=== PATIENT | female | born 1955 | race Caucasian/White ===

== ENCOUNTER 2019-01-22 18:26 | Inpatient (IN) ==
[2019-01-22] MEDS ORDERED: ZOFRAN IV PRN (20:15)
[2019-01-22] MEDS ORDERED: CARDIZEM 100 MG/NS 100 MG/100 ML IVPB IV SCH (20:45)
--- NOTE | 2019-01-22 21:16 | EKG Report ---
Test Performed on : 01/22/2019 8:45:59 PM Test Reason : afib rvr Blood Pressure : / mmHG Vent. Rate : 064 BPM Atrial Rate : 064 BPM P-R Int : 136 ms QRS Dur : 084 ms QT Int : 406 ms P-R-T Axes : 053 006 062 degrees QTc Int : 418 ms Normal sinus rhythm. Possible Left atrial enlargement Nonspecific ST abnormality Abnormal ECG When compared with ECG of 21-JUN-2011 12:28, No significant change was found Confirmed by Ayden MARQUES, Harris ([id number]) on 01/23/2019 8:40:52 AM
--- NOTE | 2019-01-22 21:18 | HISTORY AND PHYSICAL ---
PRIMARY CARE PROVIDER: Yung Medel MD. CHIEF COMPLAINT: Upper respiratory infection. HISTORY OF PRESENT ILLNESS: This is a pleasant, 63-year-old female who comes to us from [facility]. She had originally gone to Urgent Care because of cough and upper respiratory complaints. She was diagnosed with a sinus infection, upper respiratory infection, but she was found to be tachycardic and was told to go be evaluated at the Emergency Room. The Emergency Room noted that she was in A-fib with a rapid ventricular rate. She was given multiple pushes of Cardizem and was maxed out on a Cardizem drip. She was transferred for further evaluation. She is currently in sinus rhythm with a rate of 63 on 5 mg of Cardizem. She will be monitored in CICU with an echocardiogram tomorrow morning. PAST MEDICAL HISTORY: Hyperlipidemia. PREVIOUS SURGICAL HISTORY: Two C-sections. SOCIAL HISTORY: She smokes half a pack of cigarettes per day. No alcohol. No illicit drugs. FAMILY HISTORY: Parents both had CVAs. Mother had open heart surgery after having coronary artery disease. A brother had a heart attack. ALLERGIES: No known drug allergies. HOME MEDICATIONS: Lipitor; she is unsure what dose she takes. Order was placed with nursing to reconcile this with her pharmacy. REVIEW OF SYSTEMS: A 14-point review of systems was conducted with the patient. She is positive for a productive cough, postnasal drip, head fullness or sinus stuffiness, it felt as if her heart was racing and she was having shortness of breath with the episode. All other systems are reviewed and found to be negative. PHYSICAL EXAMINATION: VITAL SIGNS: Temperature 98.6 degrees, pulse 67, respirations 18, blood pressure 137/67, oxygen saturation 100% on room air. GENERAL: A pleasant, 63-year-old female lying on the [facility] bed. She is alert and oriented x 3, in no acute distress. Answers all questions appropriately. HEENT: The head is atraumatic and normocephalic. The pupils are equal, round, and reactive to light. The extraocular eye movement is intact. The sclerae are nonicteric. The conjunctivae are pink. The oral mucosa is moist. Postnasal drip noted. No pharyngeal erythema. No tonsillar exudates. NECK: Supple. No JVD. No carotid bruit. The trachea is midline. No cervical lymphadenopathy. CARDIAC: S1, S2 appreciated. No murmurs, gallops, rubs. LUNGS: Clear to auscultation bilaterally. No rhonchi, wheezes, or rales. Symmetric rise and fall with respirations. ABDOMEN: Protuberant. Soft, nondistended, nontender. Bowel sounds present in all 4 quadrants. Normoactive. No pulsatile masses. No organomegaly. EXTREMITIES: No clubbing, cyanosis or edema. 2+ pedal pulses bilaterally. GENITOURINARY: No bladder distention; patient voids. Otherwise deferred. NEUROLOGICAL: Alert and oriented x 3. Cranial nerves II-XII grossly intact. DIAGNOSTIC DATA: Chest x-ray is pending. Laboratory data: WBC 14, hemoglobin 14.6, hematocrit 44, platelet count 236. Sodium 135, potassium 4.3, chloride 95, carbon dioxide 24, BUN 10, creatinine 0.8, glucose 98. Urinalysis unremarkable. CK and troponins within normal limits. ASSESSMENT AND PLAN: 1. Atrial fibrillation with rapid ventricular rate. We will continue Cardizem drip. Echocardiogram tomorrow morning. We will change patient over to oral medications. 2. Sinus infection. We will treat with Levaquin. She is also having cough. We will give Tussionex p.r.n.. 3. Hyperlipidemia. Check a lipid profile. Nursing to reconcile her home Lipitor dosing with the pharmacy. This can be restarted when appropriate. Further recommendations depending on clinical course. Dictated by JIMMY Patterson for Clau Shaffer MD cc: JIMMY Patterson MD Examined pt independently at bedside. CHADS vasc 2 score is <2 and will start on ASA for now. Echo ordered and extensive valvular disease needs to be ruled out along with depressed LV function. Pt did admit to taking 2 decogestant medications prior onset of symptoms today. [facility]
[2019-01-22] MEDS: TYLENOL PO PRN (21:24)
[2019-01-22] MEDS: TUSSIONEX LIQUID PO PRN (21:24)
[2019-01-23] MEDS: TYLENOL PO PRN (03:31)
[2019-01-23 06:17] LABS: BASO# 0.02 X1000 (0.0-0.2); BASO% 0.2 % (0.0-0.8); EOS# 0.16 X1000 (0.0-0.7); HEMATOCRIT 37.6 % (37.0-47.0); HEMOGLOBIN 12.3 g/dL (12.0-16.0); IMM GRAN# 0.02 X1000 (0.0-0.04); IMM GRAN% 0.2 % (0.0-0.5); LYMPH# 0.75 X1000 (1.2-3.4); LYMPH% 9.3 % (20.5-51.1); MCH 28.6 PG (27-31); MCHC 32.7 g/dL (33-37); MCV 87.4 FL (81-99); MONO# 0.76 X1000 (0.11-0.59); MONO% 9.4 % (1.7-9.3); MPV 11.2 FL (7.4-10.4); NEUT# 6.34 X1000 (1.4-6.5); NEUT% 78.9 % (42.2-75.2); PLT 203 X1000 (130-400); WBC 8.05 X1000 (4.8-10.8)
[2019-01-23 06:33] LABS: AGAP 15; BUN 13 mg/dL (8-22); CALCIUM 8.7 mg/dL (8.8-10.2); CHLORIDE 99 mmol/L (98-107); CHOLESTEROL 130 mg/dL (0-200); COSMO 272; CREATININE 0.8 mg/dL (0.5-0.9); ESTIMATED GFR > 60; GLUCOSE 99 mg/dL (70-104); HDL 51 mg/dL (45-65); LDL 47 mg/dL; MAGNESIUM 1.9 mg/dL (1.5-2.7); POTASSIUM 3.6 mmol/L (3.5-5.1); SODIUM 136 mmol/L (136-145); TCO2 22 mmol/L (25-35); TRIGLYCERIDES 160 mg/dL (35-135); VLDL 32 mg/dL
--- NOTE | 2019-01-23 08:38 | EKG Report ---
Test Performed on : 01/23/2019 08:26:02 AM Test Reason : A FIB Blood Pressure : / mmHG Vent. Rate : 065 BPM Atrial Rate : 065 BPM P-R Int : 140 ms QRS Dur : 082 ms QT Int : 416 ms P-R-T Axes : 054 -12 037 degrees QTc Int : 432 ms Normal sinus rhythm. Possible Left atrial enlargement Left ventricular hypertrophy Nonspecific ST abnormality Abnormal ECG When compared with ECG of 22-JAN-2019 20:45, (Unconfirmed) No significant change was found Confirmed by Ayden MARQUES, Harris ([id number]) on 01/23/2019 8:45:38 AM
[2019-01-23] MEDS: LEVAQUIN PO SCH (09:41)
--- NOTE | 2019-01-23 11:25 | Diag Imaging Result Doc PS360 ---
EXAM: CHEST-2 VIEWS 01/23/2019 HISTORY: URI TECHNIQUE: PA and lateral chest COMMENT: There is no evidence of acute cardiac or pulmonary disease. Compared to 08/05/2017 there has been no significant change. IMPRESSION: No evidence of acute disease. Electronically signed by Camron Appiah 01/23/2019 11:22 AM
--- NOTE | 2019-01-23 12:33 | PROGRESS NOTE ---
DATE: 01/23/2019 SUBJECTIVE: This patient has been transferred from [facility] due to atrial fibrillation. Apparently, she was given some Cardizem, and then transferred to our facility. As per the admitting physician's note, her heart rate was in sinus when he saw this patient at 63. She was transferred to [facility]. We asked for an echocardiogram and cardiology evaluation. She does not have any history of atrial fibrillation before. She is a smoker. She has dyslipidemia and a sinus infection. OBJECTIVE: Vital Signs: Temperature 98.9 degrees, pulse 81, respiratory rate 20, blood pressure 109/60, and oxygen saturation 95% on room air. HEENT: Head normocephalic. No trauma. PERRLA. Neck: Supple. No JVD. No masses. Central trachea. Chest: Decreased breath sounds bilaterally with some prolongation of the expiratory phase and scattered wheezing. Abdomen: Soft. Protuberant. Nontender. Nondistended. No hepatosplenomegaly. Extremities: No edema. No clubbing. No cyanosis. Cardiovascular: RRR. Neurological: The patient is alert. She is oriented x3. No focal deficits. LABORATORY: WBC 8, hemoglobin 12.3, hematocrit 37.6, and platelets 203,000. Sodium 136, potassium 3.6, chloride 99, bicarbonate 22, BUN 13, creatinine 0.8 glucose 99, calcium 8.7, magnesium 1.9, and TSH 3.2. ASSESSMENT AND PLAN: 1. Atrial fibrillation with RVR, resolved. She is still on diltiazem drip. Cardiology Department has been consulted pending echocardiogram resolved. I have requested a new EKG. She is complaining of mild shortness of breath and cough. She is wheezing, but she does not have any history of COPD. She does have a sinus infection. 2. Sinusitis. She has been started on Levaquin and cough medication, I will add Xopenex because this patient has been wheezing. 3. Hyperlipidemia. Continue with her Lipitor, which is apparently the only medication that she has been on. She has been taking at home. 4. Tobacco abuse. This patient has been highly advised against tobacco use. I will continue with daily cessation education. 5. This patient is in normal sinus at this moment. It looks like her CHADS2 Vasc score is low. I will let Cardiology Department to decide if this patient needs anticoagulation or not. cc: Adalberto Ogden MD
[2019-01-23] MEDS: CARDIZEM PO SCH ×2 (14:14→21:37)
[2019-01-23] MEDS: ASPIRIN PO SCH (14:14)
[2019-01-23] MEDS: XOPENEX NEB INH SCH ×3 (16:41→21:23)
--- NOTE | 2019-01-23 17:59 | ECHO REPORT ---
ORDER DATE: 01/23/2019 M-MODE MEASUREMENTS: Left ventricle end diastole: 4.9. Left ventricle end systole: 2.7. Posterior wall: 1.0. Interventricular septum: 1.0. Left atrium: 3.1. Aortic diameter: 2.6. SUMMARY OF 2-DIMENSIONAL IMAGIN. Left ventricular function is normal. Ejection fraction is 70% to 75%. No wall motion abnormality noted. 2. The aortic valve is normal. Color flow mapping unremarkable. There is an abnormal gradient across the outflow tract of the left ventricle measuring up to 44 mmHg. Mean gradient is 21 mmHg. On clip # 58, systolic frame, I believe there is evidence of a subvalvular aortic membrane. 3. The mitral valve also looks grossly normal. Color flow mapping unremarkable. 4. Pulsed wave Doppler of mitral inflow of shows "normal" E/A ratio. 5. Tissue Doppler of septal and lateral mitral annulus averages 12 cm. 6. Pulmonary venous flow is normal. There is no diastolic dysfunction. 7. The pulmonic valve shows a mild degree of regurgitation. 8. The tricuspid valve shows a mild to moderate degree of regurgitation. The pulmonary pressure is estimated at 56 mmHg. 9. There is no pericardial effusion, no mass, and no thrombus. 10.The atria appear to be within normal range. SUMMARY: This study shows: 1. Normal to hyperdynamic left ventricular systolic function. 2. Normal aortic,pulmonic, mitral tricuspid valves. 3. The increased gradient accross outflow tract of LV may relate to subvalvular aortic membrane (see clip #58, systolic frame). 6. No diastolic dysfunction is noted. 7. There is moderate pulmonary hypertension. Consider pursuing DANIA to confirm presence of subaortic membrane. cc: MD Tomas Clemente CRNP MTDD
[2019-01-23] MEDS: LIPITOR PO SCH (21:37)
--- NOTE | 2019-01-23 22:19 | CONSULTATION ---
DATE OF CONSULTATION: 01/23/2019 IMPRESSION: 1. Transient atrial fibrillation, rapid ventricular rate in setting of acute noncardiac illness (chronic obstructive pulmonary disease exacerbation). 2. Acute respiratory illness with shortness of breath and cough. Consider acute bronchitis. 3. Chronic cigarette use. 4. Obesity. RECOMMENDATIONS: 1. Telemetry observation. 2. Continue Cardizem orally. 3. Echocardiography. 4. Check thyroid function studies. 5. Continue to monitor for recurrent atrial fibrillation with inpatient telemetry and ultimately outpatient event recorder. 6. Aspirin p.o. daily for now. Consider anticoagulation if further atrial fibrillation. 7. Smoking cessation strongly advised. HISTORY: This 63-year-old white female with no prior cardiac history was transferred from [facility] in [place] for further management of acute respiratory illness as well as episode of atrial fibrillation with rapid ventricular rate. She describes a several day history of progressive cough and shortness of breath. She sought evaluation at urgent care in [place]. An irregular rate was noted in her cardiac rhythm and ECG was obtained which showed transient atrial fibrillation. She was referred to the emergency room [place] and subsequently transferred here for further care. She relates occasional brief palpitations through the years but has no awareness of any sustained tachy palpitations or the diagnosis of atrial fibrillation. There is no history of angina. Unfortunately she smokes 1/2 to 1 pack cigarettes per day. She does not use alcohol. PAST MEDICAL HISTORY: 1. Hyperlipidemia. 2. Past surgical history includes 2 previous sections. 3. She has no known drug allergies. 4. Medications prior to admission as listed. SOCIAL HISTORY: She is . She smokes 1/2 to 1 pack cigarettes per day. She does not use alcohol. She does not use recreational drugs. FAMILY HISTORY: Negative for premature coronary disease. REVIEW OF SYSTEMS: Pulmonary: Noteworthy for dyspnea and cough as well as some wheezing. Gastrointestinal: Negative. Constitutional: Negative for fever. Remainder of review of systems negative/noncontributory with 14 total systems reviewed. PHYSICAL EXAMINATION: General: This is a obese, older middle-aged white female in no distress. Blood pressure 130/55, heart rate 66 and regular. HEENT: Extraocular movements intact. Mucous membranes moist. Neck: Supple without jugular venous distention. No carotid bruits. Chest: Auscultation of the chest reveals scattered expiratory wheezes. Cardiac: Reveals a regular rate and rhythm without appreciable murmur or gallop. Abdomen: Soft. Bowel sounds are normal. Extremities: Without edema. Neurologic: Reveals her to be alert and fully oriented. Speech is fluent. She moves all 4 extremities equally well. Skin: Warm, dry. Psychiatric: Reveals her mood to be appropriate. DATA: Twelve lead EKG obtained yesterday in the emergency room in [facility] demonstrates sinus rhythm with a transient irregular supraventricular tachyarrhythmia probably atrial fibrillation but cannot entirely exclude multifocal atrial tachycardia. ECG after transfer here demonstrates normal sinus rhythm, left atrial abnormality and nonspecific ST abnormality. LABORATORY DATA: Includes sodium 136, potassium 3.6, chloride 99, carbon dioxide 22, BUN 13, creatinine 0.8, glucose 99, magnesium 1.9. White blood cell count 8.05, hematocrit 37.6, platelet count 203,000, hemoglobin 12.3. Chest x-ray with no acute infiltrate. cc: Judah Stahl MD
[2019-01-24] MEDS: CARDIZEM PO SCH (02:28)
[2019-01-24 07:03] LABS: AGAP 13; BUN 11 mg/dL (8-22); CALCIUM 9.4 mg/dL (8.8-10.2); CHLORIDE 101 mmol/L (98-107); COSMO 275; CREATININE 0.7 mg/dL (0.5-0.9); ESTIMATED GFR > 60; GLUCOSE 106 mg/dL (70-104); POTASSIUM 3.6 mmol/L (3.5-5.1); SODIUM 138 mmol/L (136-145); TCO2 24 mmol/L (25-35)
[2019-01-24] MEDS ORDERED: CARDIZEM IV ONE (07:13)
[2019-01-24] MEDS ORDERED: CARDIZEM 100 MG/NS 100 MG/100 ML IVPB IV SCH (07:30)
--- NOTE | 2019-01-24 07:43 | EKG Report ---
Test Performed on : 01/24/2019 06:33:19 AM Test Reason : tachycardia Blood Pressure : / mmHG Vent. Rate : 126 BPM Atrial Rate : 178 BPM P-R Int : 000 ms QRS Dur : 082 ms QT Int : 290 ms P-R-T Axes : 000 015 150 degrees QTc Int : 420 ms Atrial fibrillation. with rapid ventricular response. Marked ST abnormality, possible inferior subendocardial injury Abnormal ECG When compared with ECG of 23-JAN-2019 08:26, Atrial fibrillation. has replaced Sinus rhythm. Vent. rate has increased BY [address] now depressed in Inferior leads T wave inversion now evident in Lateral leads Confirmed by Ayden MARQUES, Harris ([id number]) on 01/24/2019 8:40:58 AM
[2019-01-24] MEDS: LOVENOX SUBQ SCH ×2 (07:48→20:12)
[2019-01-24] MEDS: ASPIRIN PO SCH ×2 (07:49→08:01)
[2019-01-24] MEDS: LEVAQUIN PO SCH ×2 (07:49→08:01)
[2019-01-24] MEDS: XOPENEX NEB INH SCH ×3 (08:30→21:19)
[2019-01-24] MEDS: MULTAQ PO SCH ×2 (09:46→20:12)
--- NOTE | 2019-01-24 11:38 | EKG Report ---
Test Performed on : 01/24/2019 11:13:01 AM Test Reason : sr vs afib Blood Pressure : / mmHG Vent. Rate : 065 BPM Atrial Rate : 065 BPM P-R Int : 140 ms QRS Dur : 088 ms QT Int : 394 ms P-R-T Axes : 057 004 050 degrees QTc Int : 409 ms Normal sinus rhythm. Nonspecific ST abnormality Abnormal ECG When compared with ECG of 24-JAN-2019 06:33, Sinus rhythm. has replaced Atrial fibrillation. Vent. rate has decreased BY 61 BPM T wave inversion no longer evident in Lateral leads Confirmed by Ayden MARQUES, Harris ([id number]) on 01/24/2019 5:39:11 PM
--- NOTE | 2019-01-24 11:57 | PROGRESS NOTE ---
DATE: 01/24/2019 SUBJECTIVE: This patient today is in atrial fibrillation with RVR. She has been placed on Lovenox twice a day and a diltiazem drip. I discussed the case with the cardiology department and Dr. Judah Stahl recommended to start this patient on Multaq 400 mg p.o. twice a day. I have discontinued the levofloxacin and the ondansetron due to interactions with Multaq, and I placed this patient on Augmentin. OBJECTIVE: Vital Signs: Temperature 98.3 degrees, pulse 111, respiratory rate 18, blood pressure 117/87, oxygen saturation 97% on room air. HEENT: Head normocephalic. No trauma. PERRLA. Neck: Supple. No JVD. No masses. Central trachea. Chest: Decreased breath sounds bilaterally with some prolonged expiratory phase and scattered wheezing. Abdomen: Soft, protuberant, nontender, nondistended. No hepatosplenomegaly. Extremities: No edema, no clubbing, no cyanosis. Neurological Examination: The patient is alert and oriented x3. No focal deficits. Cardiovascular: Irregularly irregular rate and rhythm, tachycardic. Laboratory: Sodium 138, potassium 3.6, chloride 101, bicarbonate 24, BUN 11, creatinine 0.7, glucose 106, calcium 9.4. ASSESSMENT AND PLAN: 1. Atrial fibrillation with rapid ventricular response. She is now on a diltiazem drip and cardiology department has recommended to start this patient on Multaq 400 mg by mouth twice a day. I have discontinued levofloxacin and ondansetron due to possible interaction with this medication, and I have placed this patient on Augmentin instead. 2. Sinusitis. I will continue with breathing treatments and also I will put her on Augmentin. 3. Hyperlipidemia. Continue with Lipitor. 4. Tobacco abuse. This patient has been highly advised against tobacco use. I will continue with daily cessation education. Probably, this patient also has chronic obstructive pulmonary disease given her history of tobacco use and wheezing. cc: Adalberto Ogden MD
[2019-01-24] MEDS: NS NEB INH SCH ×2 (15:36→15:37)
--- NOTE | 2019-01-24 19:39 | CARDIOLOGY PROGRESS NOTE ---
DATE: 01/24/2019 SUBJECTIVE: The patient had recurrence of atrial fibrillation with rapid ventricular rate overnight, and has been started on intravenous Cardizem plus Lovenox. She has spontaneously converted back to sinus rhythm. She relates some chest tightness with her episode as well as palpitations. She has no exertional chest tightness. OBJECTIVE: Blood pressure 121/58, heart rate 60, oxygen saturation 96% on room air. There is no significant jugular venous distention. Chest is clear to auscultation bilaterally. Cardiac exam reveals a regular rate and rhythm without appreciable murmur or gallop. There is no evidence of peripheral edema. LABORATORY DATA: Includes a sodium 138, potassium 3.6, chloride 101, carbon dioxide 24, BUN 11, creatinine 0.7, glucose 106. TSH 3.29. DIAGNOSTIC DATA: Echocardiography reports normal left ventricular ejection fraction. There is suggestion of a possible subvalvular aortic membrane with relatively mild gradient. Moderate tricuspid regurgitation also demonstrated with moderate pulmonary hypertension. IMPRESSION: 1. Paroxysmal atrial fibrillation. 2. Some chest tightness associated with tachycardia of unclear clinical significance. 3. Chronic cigarette use. 4. Obesity. RECOMMENDATIONS: 1. Continue anticoagulation for now. Transitioning to Eliquis for at least short-term. Anticoagulation. Her [id number] score is 1 and therefore anticoagulation may only be needed short-term. 2. Continue Cardizem and transition to oral Cardizem for rate control. 3. Add Multaq to suppress paroxysmal atrial fibrillation. 4. Arrange screening for coronary disease, given chest tightness. We will arrange for Lexiscan sestamibi study. 5. For now, we will defer pursuit of transesophageal echocardiography, given the limited gradient across the possible subaortic membrane. 6. If Lexiscan sestamibi study is negative and the patient maintains sinus rhythm, it would be reasonable for her to go home tomorrow p.m. or Tuesday morning. I will be glad to see her for followup 2-3 weeks after discharge. cc: Judah Stahl MD
[2019-01-24] MEDS: AUGMENTIN PO SCH (20:12)
[2019-01-24] MEDS: LIPITOR PO SCH (20:12)
[2019-01-25 05:58] LABS: HEMATOCRIT 37.4 % (37.0-47.0); HEMOGLOBIN 12.1 g/dL (12.0-16.0); MCH 28.3 PG (27-31); MCHC 32.4 g/dL (33-37); MCV 87.4 FL (81-99); MPV 11.1 FL (7.4-10.4); RBC 4.28 XMIL (4.2-5.4); RDW 14.1 % (11.5-14.5); WBC 5.56 X1000 (4.8-10.8)
[2019-01-25 06:06] LABS: MAGNESIUM 2.1 mg/dL (1.5-2.7); PHOSPHORUS 3.3 mg/dL (2.7-4.5); POTASSIUM 3.6 mmol/L (3.5-5.1)
[2019-01-25] MEDS: CARDIZEM CD PO SCH (08:46)
[2019-01-25] MEDS: MULTAQ PO SCH ×2 (08:46→21:33)
[2019-01-25] MEDS: AUGMENTIN PO SCH ×2 (08:46→21:33)
[2019-01-25] MEDS: ELIQUIS PO SCH ×2 (08:46→21:32)
[2019-01-25] MEDS: XOPENEX NEB INH SCH ×3 (09:02→22:55)
--- NOTE | 2019-01-25 11:06 | PROGRESS NOTE ---
DATE: 01/25/2019 SUBJECTIVE: This patient is feeling much better today. We have stopped the Cardizem drip, and she has been placed on diltiazem p.o. Also, I have switched the Lovenox to p.o. anticoagulation with Eliquis twice a day. I will continue with the same management. She will have a stress test done between today and tomorrow. Hopefully tomorrow, this patient will be discharged. OBJECTIVE: Vital Signs: Temperature 98.2 degrees, pulse 71, respiratory rate 23, blood pressure 125/54, oxygen saturation 95% on room air. HEENT: Head normocephalic. No trauma. PERRLA. Neck: Supple. No JVD. No masses. Central trachea. Chest: Clear to auscultation. I do not hear any wheezing today. Some crepitus at the bases. Abdomen: Soft, protuberant, nontender, nondistended. No hepatosplenomegaly. Extremities: No edema, no clubbing, no cyanosis. Neurological: The patient is alert and oriented x3. No focal deficits. LABORATORY DATA: WBC 5.5, hemoglobin 12.1, hematocrit 37.4, platelets 211,000. Sodium 138, potassium 3.6, chloride 101, bicarbonate 24, BUN 14, creatinine 1, glucose 112, calcium 9. ASSESSMENT AND PLAN: 1. Atrial fibrillation with rapid ventricular response, resolved. Now, she converted to normal sinus rhythm. We have stopped the diltiazem drip, and put this patient on diltiazem by mouth. Also, the Lovenox has been stopped, and we put her on Eliquis twice a day. The plan now is to go ahead and do a stress test between today and tomorrow. Hopefully tomorrow, this patient will be discharged home, if everything is okay. 2. Sinusitis. I will continue with breathing treatment, and also continue with Augmentin. 3. Possible bronchitis as above. Continue with the same management. 4. Hyperlipidemia. Continue with Lipitor. 5. Tobacco abuse. This patient has been highly advised against tobacco use. I will continue with daily cessation education. cc: Adalberto Ogden MD
--- NOTE | 2019-01-25 18:37 | PROGRESS NOTE ---
DATE: 01/25/2019 SUBJECTIVE: The patient continues without chest discomfort or shortness of breath on room air. She continues in sinus rhythm. OBJECTIVE: Blood pressure 125/54, heart rate 72 and regular with ECG monitor showing sinus rhythm. Oxygen saturation 95% on room air. There is no significant jugular venous distention.Chest: Clear to auscultation bilaterally. Cardiac Exam: Reveals a regular rate and rhythm without appreciable murmur or gallop. There is no evidence of peripheral edema. LABORATORY DATA: Includes a white blood cell count of 5.56, hematocrit 37.4, hemoglobin 12.1, platelet count 211,000. Sodium 138, potassium 3.6, chloride 101, carbon dioxide 24, BUN 14, creatinine 1.2, glucose 112. IMPRESSION: 1. Paroxysmal atrial fibrillation. Patient continues in sinus rhythm on Multaq presently. Anticoagulation initiated for at least short-term although her Yung's Vasc score is 1. 2. Some chest tightness in association with her clinical presentation of unknown clinical significance. Lexiscan sestamibi study pending. 3. Chronic cigarette use. 4. Obesity. RECOMMENDATIONS: 1. Continue short-term anticoagulation with Eliquis. 2. Continue Multaq as well as Cardizem low dose. 3. If the patient maintains sinus rhythm and Lexiscan study is negative, it would reasonable for her to be discharged to home. I would be glad to see her for followup in approximately 2 to 3 weeks after discharge. cc: Judah Stahl MD
[2019-01-25] MEDS: LIPITOR PO SCH (21:32)
[2019-01-26] MEDS: TYLENOL PO PRN (03:58)
[2019-01-26] MEDS: TUSSIONEX LIQUID PO PRN ×2 (04:04→16:53)
[2019-01-26 06:30] LABS: AGAP 12; BUN 16 mg/dL (8-22); CHLORIDE 101 mmol/L (98-107); COSMO 276; CREATININE 0.9 mg/dL (0.5-0.9); ESTIMATED GFR > 60; GLUCOSE 111 mg/dL (70-104); POTASSIUM 3.9 mmol/L (3.5-5.1); SODIUM 137 mmol/L (136-145); TCO2 24 mmol/L (25-35)
[2019-01-26] MEDS: AUGMENTIN PO SCH ×2 (08:00→20:34)
[2019-01-26] MEDS: ELIQUIS PO SCH (08:00)
[2019-01-26] MEDS: MULTAQ PO SCH ×3 (08:00→20:42)
[2019-01-26] MEDS: CARDIZEM CD PO SCH ×3 (08:00→20:43)
[2019-01-26] MEDS ORDERED: LEXISCAN ONE (08:22)
[2019-01-26] MEDS: XOPENEX NEB INH SCH ×3 (09:06→22:32)
--- NOTE | 2019-01-26 14:10 | Diag Imaging Result Document ---
PROCEDURE NAME: MYOCARDIAL PERF SCAN, STR/REST - 01/25/2019 INDICATIONS: Chest pain, atrial fibrillation. PROCEDURES PERFORMED: 1. Lexiscan stress. 2. Two-day stress/rest myocardial perfusion imaging (rest dose at 32 millicuries of technetium, stress at dose 31.1 mCi of technetium). FINDINGS: LEXISCAN STRESS RESULTS: 1. Baseline EKG shows sinus rhythm. There is some sagging ST segments in the inferior leads. 2. Lexiscan stress not demonstrate any clear evidence of ischemic related EKG changes or significant arrhythmias. PERFUSION IMAGING RESULTS: 1. No evidence of abnormal extracardiac uptake. 2. TID ratio is 1.25. 3. Perfusion imaging demonstrates a small to moderate size, mild intensity, reversible defect. This defect is involving portions of the mid anterior, apical anterior apex in the mid anterior septum. This defect appears to be reversible suggesting the possibility of ischemia. 4. There is a normal ejection fraction of 76% on rest, 78% on stress. The end-diastolic volume on rest is 60 and systolic volume 14. Wall motion appears to be normal. cc: MD Maureen Vickers PA
--- NOTE | 2019-01-26 14:13 | PROGRESS NOTE ---
DATE: 01/26/2019 SUBJECTIVE: Patient is feeling better. She will have a stress test completed today and if the result is normal, she will be discharged and follow up with Cardiology Department in three weeks. OBJECTIVE: Vital Signs: Temperature 98.1 degrees, pulse 67, respiratory rate 16, blood pressure 117/57, oxygen saturation 97% on room air. HEENT: Head normocephalic, no trauma. PERRLA. Neck: Supple. No JVD. No masses. Central trachea. Chest: Clear to auscultation. No wheezing. No rales. Abdomen: Soft. Protuberant. Nontender, nondistended. No hepatosplenomegaly. Extremities: No edema. No clubbing. No cyanosis. Neurological: The patient is alert. She is oriented x3. No focal deficits. LABORATORY: Sodium 137, potassium 3.9, chloride 101, bicarbonate 24, BUN 16, creatinine 0.9, glucose 111, and calcium 9. ASSESSMENT AND PLAN: 1. Atrial fibrillation with rapid ventricular response, resolved. Continue with the same management for now. She is on Cardizem orally and Multaq. Continue with anticoagulation. She will have the stress test done today and if this is normal, she will be discharged home. 2. Sinusitis. Continue with same treatment. 3. Possible bronchitis. Continue with the same management. She is getting better. 4. Hyperlipidemia. Continue with Lipitor. 5. Tobacco abuse. This patient has been highly advised against tobacco use. I will continue with daily cessation education. cc: Adalberto Ogden MD
--- NOTE | 2019-01-26 16:54 | EKG Report ---
Test Performed on : 01/26/2019 4:42:38 PM Test Reason : increased hr Blood Pressure : / mmHG Vent. Rate : 110 BPM Atrial Rate : 136 BPM P-R Int : 000 ms QRS Dur : 080 ms QT Int : 362 ms P-R-T Axes : 000 -06 048 degrees QTc Int : 489 ms Atrial fibrillation. with rapid ventricular response. Minimal voltage criteria for LVH, may be normal variant Posterior infarct , age undetermined Abnormal ECG When compared with ECG of 24-JAN-2019 11:13, Atrial fibrillation. has replaced Sinus rhythm. Vent. rate has increased BY [address] now depressed in Anterior leads Nonspecific T wave abnormality now evident in Inferior leads QT has lengthened Confirmed by Ayden MARQUES, Harris ([id number]) on 01/29/2019 8:14:07 AM
[2019-01-26] MEDS: LIPITOR PO SCH (20:34)
[2019-01-26] MEDS: LOVENOX SUBQ SCH (20:39)
[2019-01-27] MEDS: LOVENOX SUBQ SCH ×2 (08:17→20:44)
[2019-01-27] MEDS: MULTAQ PO SCH ×2 (08:18→20:44)
[2019-01-27] MEDS: AUGMENTIN PO SCH ×2 (08:18→20:44)
[2019-01-27] MEDS: ASPIRIN PO SCH (08:18)
[2019-01-27] MEDS: CARDIZEM CD PO SCH ×2 (08:18→20:44)
[2019-01-27] MEDS: XOPENEX NEB INH SCH ×3 (10:40→23:18)
--- NOTE | 2019-01-27 10:55 | PROGRESS NOTE ---
DATE: 01/27/2019 SUBJECTIVE: The patient is feeling better. She had an episode of atrial fibrillation yesterday .I noticed that Cardiology Department put this patient on diltiazem twice a day instead of once a day. She is back to normal sinus rhythm. She is scheduled to get a stress test this Tuesday, she will be in NPO for that procedure. She is not having symptoms today. OBJECTIVE: Vital Signs: Temperature 97.8 degrees, pulse 59, respiratory rate 13, blood pressure 97/60, oxygen saturation 96 on room air. HEENT: Head normocephalic, no trauma. PERRLA. Neck: Supple. No JVD. No masses. Central trachea. Chest: Clear to auscultation. No wheezing. No rales. Abdomen: Soft, nontender, nondistended. No hepatosplenomegaly. Cardiovascular: Regular rate and rhythm. Extremities: No edema. No clubbing. No cyanosis. Neurological: The patient is alert and oriented x3. No focal deficits. LABORATORY: No lab work done today. ASSESSMENT AND PLAN: 1. Atrial fibrillation with rapid ventricular response, resolved. She had an episode of atrial fibrillation yesterday. I noticed that Cardiology Department put this patient on diltiazem twice a day instead of once a day and continued with Multaq. She will have a cardiac cath done on Tuesday since she had an abnormal stress test done yesterday. 2. Possible coronary artery disease, with abnormal stress test on yesterday. This Tuesday, she will have a cardiac cath done. 3. Sinusitis. Continue with same treatment. 4. Possible bronchitis. Continue with same management. She is getting better. 5. Hyperlipidemia continue with Lipitor. 6. Tobacco abuse. This patient has been highly advised against tobacco use. I will continue with daily cessation education. cc: Adalberto Ogden MD
--- NOTE | 2019-01-27 14:10 | EKG Report ---
Test Performed on : 01/27/2019 06:40:48 AM Test Reason : chest pain Blood Pressure : / mmHG Vent. Rate : 057 BPM Atrial Rate : 057 BPM P-R Int : 152 ms QRS Dur : 088 ms QT Int : 440 ms P-R-T Axes : 054 -06 028 degrees QTc Int : 428 ms Sinus bradycardia. Nonspecific ST abnormality Abnormal ECG When compared with ECG of 26-JAN-2019 16:42, (Unconfirmed) Sinus rhythm. has replaced Atrial fibrillation. Vent. rate has decreased BY [address] no longer depressed in Anterolateral leads QT has shortened Confirmed by Ayden MARQUES, Harris ([id number]) on 01/29/2019 8:16:03 AM
[2019-01-27] MEDS: LIPITOR PO SCH (20:44)
[2019-01-28 07:03] LABS: AGAP 13; BUN 19 mg/dL (8-22); CALCIUM 9.4 mg/dL (8.8-10.2); CHLORIDE 103 mmol/L (98-107); COSMO 282; CREATININE 0.9 mg/dL (0.5-0.9); ESTIMATED GFR > 60; GLUCOSE 101 mg/dL (70-104); POTASSIUM 3.9 mmol/L (3.5-5.1); SODIUM 140 mmol/L (136-145); TCO2 24 mmol/L (25-35)
[2019-01-28] MEDS: ASPIRIN PO SCH (08:32)
[2019-01-28] MEDS: TYLENOL PO PRN (08:32)
[2019-01-28] MEDS: CARDIZEM CD PO SCH ×2 (08:32→21:22)
[2019-01-28] MEDS: MULTAQ PO SCH ×2 (08:32→21:22)
[2019-01-28] MEDS: AUGMENTIN PO SCH ×2 (08:32→21:21)
--- NOTE | 2019-01-28 08:51 | EKG Report ---
Test Performed on : 01/28/2019 06:36:05 AM Test Reason : chest pain Blood Pressure : / mmHG Vent. Rate : 057 BPM Atrial Rate : 057 BPM P-R Int : 152 ms QRS Dur : 096 ms QT Int : 478 ms P-R-T Axes : 060 009 059 degrees QTc Int : 465 ms Sinus bradycardia. Nonspecific ST abnormality Abnormal ECG When compared with ECG of 27-JAN-2019 06:40, (Unconfirmed) No significant change was found Confirmed by Ayden MARQUES, Harris ([id number]) on 01/29/2019 8:18:03 AM
[2019-01-28] MEDS: LOVENOX SUBQ SCH ×2 (09:05→21:21)
--- NOTE | 2019-01-28 09:12 | PROGRESS NOTE ---
DATE: 01/28/2019 SUBJECTIVE: No acute events overnight. OBJECTIVE: Vital Signs: Temperature 98.2 degrees, pulse 52, respiratory rate 16, blood pressure 109/60, oxygen saturation 94% on room air. HEENT: Head normocephalic. No trauma. PERRLA. Neck: Supple. No JVD. No masses. Central trachea. Chest: Clear to auscultation. No wheezing. No rales. Abdomen: Soft, nontender, nondistended. No hepatosplenomegaly. Cardiovascular: RRR. Extremities: No edema, no clubbing, no cyanosis. Neurological Examination: The patient is alert. She is oriented x3. No focal deficits. Laboratory: Sodium 140, potassium 3.9, chloride 103, bicarbonate 24, BUN 19, creatinine 0.9, glucose 101, calcium 9.4. ASSESSMENT AND PLAN: 1. Atrial fibrillation with rapid ventricular response, resolved. Continue with the same management. 2. Possible coronary artery disease with abnormal stress test done 2 days ago. She is scheduled for a cardiac catheterization this Tuesday, tomorrow. 3. Sinusitis. Continue with the same treatment. 4. Possible bronchitis. This is better. Continue with the same management. 5. Hyperlipidemia. Continue with Lipitor. 6. Tobacco abuse. This patient has been highly advised against tobacco use. I will continue with daily cessation education. cc: Adalberto Ogden MD
[2019-01-28] MEDS: XOPENEX NEB INH SCH ×3 (12:00→23:10)
[2019-01-28] MEDS: TUSSIONEX LIQUID PO PRN (15:51)
[2019-01-28] MEDS: LIPITOR PO SCH (21:22)
[2019-01-29 05:03] LABS: HEMOGLOBIN 11.9 g/dL (12.0-16.0); MCH 28.5 PG (27-31); MCHC 32.2 g/dL (33-37); MCV 88.5 FL (81-99); MPV 11.3 FL (7.4-10.4); RBC 4.18 XMIL (4.2-5.4); RDW 14.2 % (11.5-14.5); WBC 7.09 X1000 (4.8-10.8)
[2019-01-29 05:09] LABS: INR 0.99; PROTIME 13.2 Seconds (11.0-16.0)
[2019-01-29 05:31] LABS: AGAP 12; BUN 20 mg/dL (8-22); CALCIUM 8.7 mg/dL (8.8-10.2); CHLORIDE 104 mmol/L (98-107); COSMO 278; CREATININE 0.9 mg/dL (0.5-0.9); ESTIMATED GFR > 60; GLUCOSE 98 mg/dL (70-104); MAGNESIUM 2.2 mg/dL (1.5-2.7); POTASSIUM 3.9 mmol/L (3.5-5.1); SODIUM 138 mmol/L (136-145); TCO2 22 mmol/L (25-35)
--- NOTE | 2019-01-29 07:26 | EKG Report ---
Test Performed on : 01/29/2019 06:42:15 AM Test Reason : chest pain Blood Pressure : / mmHG Vent. Rate : 052 BPM Atrial Rate : 052 BPM P-R Int : 154 ms QRS Dur : 082 ms QT Int : 446 ms P-R-T Axes : 054 -04 029 degrees QTc Int : 414 ms Sinus bradycardia. Nonspecific ST abnormality Abnormal ECG When compared with ECG of 28-JAN-2019 06:36, (Unconfirmed) No significant change was found Confirmed by Ayden MARQUES, Harris ([id number]) on 01/29/2019 8:26:03 AM
[2019-01-29] MEDS ORDERED: HEPARIN 1000 UNITS/NS 2,000 UNIT/1,000 ML IV.SOLN ONE (08:22)
[2019-01-29] MEDS ORDERED: ANESTHESIA PB SET 88 IN 5742 ONE (09:14)
[2019-01-29] MEDS ORDERED: NS 1,000 ML ONE (09:14)
[2019-01-29] MEDS ORDERED: MORPHINE ONE (09:14)
[2019-01-29] MEDS ORDERED: VERSED ONE (09:14)
[2019-01-29] MEDS ORDERED: CLAVE TWINSITE 32 IN 11959 ONE (09:14)
--- NOTE | 2019-01-29 09:24 | PROGRESS NOTE ---
DATE: 01/29/2019 SUBJECTIVE: No acute events overnight. OBJECTIVE: Vital Signs: Temperature 97.4 degrees, pulse 51, respiratory rate 16, blood pressure 95/70, oxygen saturation 98 on room air. HEENT: Head normocephalic. No trauma. PERRLA. Neck: Supple. No JVD. No masses. Central trachea. Chest: Clear to auscultation. No wheezing. No rales. Abdomen: Soft, nontender, nondistended. No hepatosplenomegaly. Cardiovascular: RRR. Extremities: No edema, no clubbing, no cyanosis. Neurological Examination: The patient is alert and oriented x3. No focal deficits. Laboratory: WBCs 7, hemoglobin 11.9, hematocrit 37, platelets 216,000. Sodium 138, potassium 3.9, chloride 104, bicarbonate 22, BUN 20, creatinine 0.9, glucose 98, calcium 8.7, magnesium 2.2. ASSESSMENT AND PLAN: 1. Atrial fibrillation with rapid ventricular response, resolved. Continue with the same management. 2. Possible coronary artery disease with an apparent abnormal stress test done 3 days ago. She has been scheduled for a cardiac catheterization today, pending cardiology evaluation. 3. Sinusitis. Continue with the same treatment. 4. Bronchitis. This is better. Continue with the same management. 5. Hyperlipidemia. Continue with Lipitor. 6. Tobacco abuse. This patient has been highly advised against tobacco use. I will continue with daily cessation education. cc: Adalberto Ogden MD
[2019-01-29] MEDS: MULTAQ PO SCH (10:20)
[2019-01-29] MEDS: LOVENOX SUBQ SCH (10:20)
[2019-01-29] MEDS: ASPIRIN PO SCH (10:20)
[2019-01-29] MEDS: CARDIZEM CD PO SCH (10:20)
[2019-01-29] MEDS: AUGMENTIN PO SCH (10:20)
[2019-01-29] MEDS: TUSSIONEX LIQUID PO PRN (10:23)
--- NOTE | 2019-01-29 10:37 | EKG Report ---
Test Performed on : 01/29/2019 10:23:08 AM Test Reason : post heart cath Blood Pressure : / mmHG Vent. Rate : 056 BPM Atrial Rate : 056 BPM P-R Int : 158 ms QRS Dur : 080 ms QT Int : 444 ms P-R-T Axes : 063 002 036 degrees QTc Int : 428 ms Sinus bradycardia. Nonspecific ST abnormality Abnormal ECG When compared with ECG of 29-JAN-2019 06:42, No significant change was found Confirmed by Ayden MARQUES, Harris ([id number]) on 01/30/2019 8:19:10 AM
--- NOTE | 2019-01-29 10:44 | CARDIAC CATH REPORT ---
PROCEDURE PERFORMED: Left heart catheterization and selective coronary angiography. Left ventriculography not performed. ENTRY SITE: Right femoral artery. CATHETERS USED: A 5-Burmese JL-4 and 3DRC. TECHNIQUE: After intravenous sedation with Versed and morphine, local anesthesia with lidocaine was applied over right femoral artery. Arterial access was established with placement of a 5- Burmese sheath in the right femoral artery using modified Seldinger technique. Selective coronary angiography of the left coronary was performed. Following this, left heart catheterization was performed with 3DRC catheter and guidewire to cross the aortic valve. Pullback within the old catheter was performed. Angiography of the right coronary artery was subsequently performed. Upon completion of the procedure, arterial sheath was removed from right femoral artery, and hemostasis facilitated with manual pressure. HEMODYNAMICS: Aortic pressure 127/56 with a mean of 85, left ventricular pressure 132 over EDP of 24. COMMENTS ON HEMODYNAMICS: On pullback from left ventricle to aorta, a [id number] aortic valve gradient of approximately 14 mm is demonstrated. Elevated left ventricular end- diastolic pressure demonstrated. ANGIOGRAPHY: 1. Left ventriculogram not performed. 2. Left main coronary: The left main coronary is short and free of significant coronary stenosis. 3. Left anterior descending coronary: The left anterior descending coronary is free of significant coronary stenosis. 4. Left circumflex: The left circumflex coronary is dominant, giving rise to posterior descending artery. There is no significant stenosis in the left circumflex coronary. 5. Right coronary: The right coronary artery is small and nondominant, and is free of significant coronary stenosis. CONCLUSIONS: 1. Elevated left ventricular end-diastolic pressure suggesting left ventricular diastolic dysfunction. 2. Left dominant coronary anatomy with no significant coronary obstructive lesions. cc: Judah Stahl MD [id number]
[2019-01-29] MEDS: XOPENEX NEB INH SCH (10:49)
[2019-01-29 11:35] VITALS: BP 109/65
--- NOTE | 2019-01-30 19:06 | DISCHARGE SUMMARY ---
ADMISSION DATE: 01/22/2019 DISCHARGE DATE: 01/29/2019 DISCHARGE DIAGNOSES: 1. Atrial fibrillation with rapid ventricular response, resolved. 2. Possible coronary artery disease, this has been ruled out with a cardiac cath done today that showed a left dominant coronary anatomy with no significant coronary obstructive lesions. 3. Sinusitis and bronchitis, already treated. 4. Hyperlipidemia. 5. Tobacco abuse. PROCEDURES PERFORMED: 1. Chest x-ray dated 01/23/2019. Impression: No evidence of acute disease. 2. Echocardiogram dated 01/23/2019. Summary: Normal to hyperdynamic left ventricular systolic function, there is an increased gradient across the outflow tract of LV, may relate to some subvalvular aortic membrane. No diastolic dysfunction is noted. 3. Nuclear stress test dated 01/25/2019. Perfusion imaging demonstrates a small to moderate size mild intensity reversible defect, this defect is involving portions of the mid anterior, apical anterior apex in the mid anterior septum, this defect appears to be reversible suggesting the possibility of ischemia. There is a normal ejection fraction of 76% at rest and 78% on stress. The end-diastolic volume on rest is 60 and systolic volume 14, wall motion appears to be normal. 4. Cardiac catheterization dated 01/29/2019. Impression: Elevated left ventricular end- diastolic pressure suggesting left ventricular diastolic dysfunction, left dominant coronary anatomy with no significant coronary obstructive lesions. HOSPITAL COURSE: 63-year-old female who has been referred from [facility] and admitted on 01/22/2019. Initially, she went to an Urgent Care because of cough and upper respiratory complaints. She was diagnosed with sinus infection and upper respiratory infection, but she was found to be tachycardic and was told to be evaluated at the emergency room. She was noted at the emergency room to be in atrial fibrillation with rapid ventricular response. She was given multiple pushes of Cardizem and was getting also Cardizem drip. She was transferred for further evaluation with Cardiology Department in this hospital. At the moment of initial evaluation here she was in sinus rhythm and the rate was controlled. We will continued with the Cardizem drip. We did an echocardiogram that has been evaluated by Cardiology Department. We treated this patient's sinus infection and bronchitis, we put this patient on her medications. Cardiology department evaluated this patient and they modified her medications. We did a stress test that showed the possibility of an ischemic lesion, but today she had a cardiac cath that did not show any obstruction in the coronary anatomy. This patient is feeling much better, she will be discharged home. PHYSICAL EXAMINATION: Vital signs: Temperature 98.1 degrees, pulse 52, respiratory rate 16, blood pressure 109/65. Oxygen saturation 96% on room air. HEENT: Head normocephalic, no trauma. PERRLA. Neck: Supple. No JVD. No masses. Central trachea. Chest: Clear to auscultation. No wheezing. No rales. Abdomen: Soft, nontender, nondistended. No hepatosplenomegaly. Cardiovascular: Regular rate and rhythm. Extremities: No edema. No clubbing. No cyanosis. Neurological: The patient is alert. She is oriented x3. No focal deficit. Right inguinal area: I do not see any hematoma or signs of infection and/or bleeding. LABORATORY: WBC 7, hemoglobin 11.9, hematocrit 37, platelets 216,000. Sodium 138, potassium 3.9, chloride 104, bicarbonate 22, BUN 20, creatinine 0.9, glucose 98, calcium 8.7, magnesium 2.2. DISCHARGE MEDICATIONS: 1. Acetaminophen 650 mg p.o. q.6 hours as needed for pain and/or fever. 2. Eliquis 5 mg p.o. b.i.d. 3. Lipitor 20 mg p.o. at bedtime. 4. Diltiazem CD 120 mg p.o. b.i.d. 5. Multaq 400 mg p.o. b.i.d. FOLLOW-UP INSTRUCTIONS: She will follow up with Cardiology Department. The patient seems to be stable. She will see Dr. Judah Stahl on 02/22/2019 at 10:15 a.m. She should come back to the emergency department for any concerns or worsening symptoms. cc: Adalberto Ogden MD
== END 2019-01-29 15:23 | disposition home or self-care (01) | DRG 287 ==
LOC: DIRADM 18:26 → SUATTDRO 18:26 → 2N 19:56
PROVIDERS: ATTEND Internal Medicine